=== PATIENT | male | born 1995 | race Hispanic/Latino ===

== ENCOUNTER 2017-08-15 22:28 | Emergency (ER) | payer BC ==
[~2017-08-15] VITALS: Ht 175.3 cm; Wt 110.8 kg
[2017-08-15 22:49] LABS: HEMATOCRIT 41.4 % (38.0-50.0); HEMOGLOBIN 14.2 G/DL (12.5-16.6); MCH 26.4 PG (29.0-34.0); MCHC 34.3 G/DL (30.0-36.0); MCV 77.1 FL (86-99); PLATELET COUNT 387 K/uL (156-360); RBC DIS.WIDTH-CV 14.7 % (11.8-14.6); RBC DIS.WIDTH-SD 40.1 % (39-53); RED BLOOD COUNT 5.37 M/uL (4.00-5.50); WHITE BLOOD COUNT 9.8 K/uL (4.1-10.2)
[2017-08-15 23:02] LABS: ALBUMIN 4.6 g/dL (3.2-4.8); CHLORIDE 110 mEq/L (99-109); POTASSIUM 3.6 mEq/L (3.7-5.4); SODIUM 140 mEq/L (136-147)
[2017-08-15 23:04] LABS: GLUCOSE 90 mg/dL (70-99)
[2017-08-15 23:05] LABS: TOTAL PROTEIN 8.5 g/dL (6.4-8.3)
[2017-08-15 23:06] LABS: TOTAL BILIRUBIN 0.5 mg/dL (0.0-1.0)
[2017-08-15 23:08] LABS: ALKALINE PHOSPHATASE 102 IU/L (3-129); CREATININE 0.9 mg/dL (0.6-1.3); GFR ESTIMATE (CALCULATED) > 59 mL/min/ (58.99-99999)
[2017-08-15 23:09] LABS: UREA NITROGEN (BUN) 8 mg/dL (9-23)
[2017-08-15 23:10] LABS: AST (GOT) 98 IU/L (2-34)
[2017-08-15 23:11] LABS: ALT (GPT) 212 IU/L (3-49)
[2017-08-16 01:28] LABS: LIPASE 32 U/L (1.0-51.0)
[2017-08-16 03:09] VITALS: BP 128/74
== END 2017-08-16 03:10 | disposition home or self-care (01) ==
LOC: EME 22:28
DX: R11.0 Nausea (principal); R53.83 Other fatigue; R10.9 Unspecified abdominal pain; J45.909 Unspecified asthma, uncomplicated; F41.9 Anxiety disorder, unspecified
CPT/HCPCS: 74177; 80053; 83690; 85027; 99281; 99285; J2405; J7030

== ENCOUNTER 2017-10-16 16:32 | Emergency (ER) | payer BC ==
[~2017-10-16] VITALS: Ht 175.3 cm; Wt 110.9 kg
[2017-10-16 17:21] LABS: HEMATOCRIT 40.3 % (38.0-50.0); HEMOGLOBIN 13.4 G/DL (12.5-16.6); MCH 25.6 PG (29.0-34.0); MCHC 33.3 G/DL (30.0-36.0); MCV 77.1 FL (86-99); PLATELET COUNT 388 K/uL (156-360); RBC DIS.WIDTH-CV 14.4 % (11.8-14.6); RBC DIS.WIDTH-SD 39.6 % (39-53); RED BLOOD COUNT 5.23 M/uL (4.00-5.50); WHITE BLOOD COUNT 8.6 K/uL (4.1-10.2)
[2017-10-16 17:25] LABS: APPEARANCE CLEAR ((CLEAR)); BILIRUBIN NEGATIVE; BLOOD NEGATIVE; COLOR YELLOW ((YELLOW)); GLUCOSE (STRIP) NEGATIVE; KETONES NEGATIVE; LEUKOCYTES NEGATIVE; NITRITE NEGATIVE; PROTEIN (STRIP) 30; SPECIFIC GRAVITY 1.013 (1.000-1.030); UCUL ADDED? NO; UROBILINOGEN 0.2 MG/DL (0.2-1.0)
[2017-10-16 17:57] LABS: ALBUMIN 4.5 G/DL (3.2-4.8); ALKALINE PHOSPHATASE 76 IU/L (3-129); ALT (GPT) 132 IU/L (3-49); AST (GOT) 61 IU/L (2-34); CHLORIDE 104 MEQ/L (99-109); CREATININE 0.8 MG/DL (0.6-1.3); GFR ESTIMATE (CALCULATED) > 59 mL/min/ (58.99-99999); GLUCOSE 92 mg/dL (70-99); POTASSIUM 3.6 MEQ/L (3.7-5.4); SODIUM 137 MEQ/L (136-147); TOTAL BILIRUBIN 0.5 MG/DL (0.0-1.0); TOTAL PROTEIN 7.9 G/DL (6.4-8.3); UREA NITROGEN (BUN) 9 mg/dL (9-23)
[2017-10-16 20:08] LABS: LIPASE 36 U/L (1.0-51.0)
[2017-10-16] MEDS ORDERED: REGLAN10 MG PO (20:19)
[2017-10-16] MEDS ORDERED: LEVSIN0.125 MG PO (20:19)
[2017-10-16 20:27] VITALS: BP 141/90
== END 2017-10-16 20:28 | disposition home or self-care (01) ==
LOC: EME 16:32
DX: R10.12 Left upper quadrant pain (principal); R11.0 Nausea; K76.0 Fatty (change of) liver, not elsewhere classified; K58.0 Irritable bowel syndrome with diarrhea; J45.909 Unspecified asthma, uncomplicated; F41.9 Anxiety disorder, unspecified
CPT/HCPCS: 74177; 80053; 81003; 83690; 85027; 99281; 99284; J1885; J2405; J7120

== ENCOUNTER 2017-11-07 00:39 | Emergency (ER) | payer BC ==
[~2017-11-07] VITALS: Ht 175.3 cm; Wt 109.0 kg
[~2017-11-07 00:39] MED LIST: LEVSIN0.125 MG PO; REGLAN10 MG PO
[2017-11-07 01:46] LABS: HEMATOCRIT 39.1 % (38.0-50.0); HEMOGLOBIN 13.2 G/DL (12.5-16.6); MCH 25.9 PG (29.0-34.0); MCHC 33.8 G/DL (30.0-36.0); MCV 76.8 FL (86-99); PLATELET COUNT 367 K/uL (156-360); RBC DIS.WIDTH-CV 14.8 % (11.8-14.6); RBC DIS.WIDTH-SD 40.8 % (39-53); RED BLOOD COUNT 5.09 M/uL (4.00-5.50); WHITE BLOOD COUNT 8.9 K/uL (4.1-10.2)
[2017-11-07 01:54] LABS: ALBUMIN 4.6 g/dL (3.2-4.8)
[2017-11-07 01:55] LABS: CHLORIDE 104 mEq/L (99-109); POTASSIUM 3.6 mEq/L (3.7-5.4); SODIUM 140 mEq/L (136-147)
[2017-11-07 01:57] LABS: GLUCOSE 92 mg/dL (70-99); TOTAL PROTEIN 8.5 g/dL (6.4-8.3)
[2017-11-07 01:59] LABS: TOTAL BILIRUBIN 0.6 mg/dL (0.0-1.0)
[2017-11-07 02:00] LABS: SERUM ETHYL ALCOHOL < 10 mg/dL
[2017-11-07 02:01] LABS: ALKALINE PHOSPHATASE 93 IU/L (3-129); GFR ESTIMATE (CALCULATED) > 59 mL/min/ (58.99-99999)
[2017-11-07 02:02] LABS: AST (GOT) 112 IU/L (2-34)
[2017-11-07 02:03] LABS: UREA NITROGEN (BUN) 15 mg/dL (9-23)
[2017-11-07 02:04] LABS: ALT (GPT) 209 IU/L (3-49); SALICYLATE < 5.0 MG/DL (15-30)
[2017-11-07 02:05] LABS: ACETAMINOPHEN (TYLENOL) < 10 mcg/mL (10-30)
[2017-11-07 06:56] LABS: APPEARANCE CLEAR ((CLEAR)); BILIRUBIN NEGATIVE; BLOOD NEGATIVE; COLOR YELLOW ((YELLOW)); GLUCOSE (STRIP) NEGATIVE; KETONES 5; LEUKOCYTES TRACE; NITRITE NEGATIVE; PROTEIN (STRIP) 100; SPECIFIC GRAVITY 1.031 (1.000-1.030); UROBILINOGEN 0.2 MG/DL (0.2-1.0)
[2017-11-07 07:00] LABS: BACTERIA NONE SEEN /HPF; EPITHELIAL CELLS RARE /HPF; MUCUS TRACE /LPF; RED BLOOD CELLS 0-5 /HPF (0-5); WHITE BLOOD CELLS 0-5 /HPF (0-5)
[2017-11-07 11:02] LABS: AMPHETAMINE NEGATIVE (500 ng/mL); BARBITURATES NEGATIVE (200 ng/mL); BENZODIAZEPINES NEGATIVE (150 ng/mL); BUPRENORPHINE NEGATIVE (10 ng/mL); COCAINE NEGATIVE (150 ng/mL); METHADONE NEGATIVE (200 ng/mL); METHAMPHETAMINE NEGATIVE (500 ng/mL); OPIATES (MORPHINE) NEGATIVE (100 ng/mL); OXYCODONE NEGATIVE (100 ng/mL); PHENCYCLIDINE NEGATIVE (25 ng/mL); PROPOXYPHENE NEGATIVE (300 ng/mL); THC CANNABINOIDS NEGATIVE (50 ng/mL); TRICYCLIC ANTIDEPRESSANTS NEGATIVE (300 ng/mL)
[2017-11-07] MEDS ORDERED: ATARAX,VISTARIL25 MG PO (14:04)
[2017-11-07 15:20] VITALS: BP 133/87
== END 2017-11-07 16:05 | disposition home or self-care (01) ==
LOC: EME → EDBD 00:39 → EME 00:39
PROVIDERS: Emergency Medicine
DX: F32.9 Major depressive disorder, single episode, unspecified (principal); T39.312A Poisoning by propionic acid derivatives, intentional self-harm, initial encounter; R45.851 Suicidal ideations; F41.1 Generalized anxiety disorder; F43.21 Adjustment disorder with depressed mood; J45.909 Unspecified asthma, uncomplicated; K58.9 Irritable bowel syndrome, unspecified; Z87.891 Personal history of nicotine dependence
CPT/HCPCS: 80053; 81003; 85027; 90837; 99281; 99284; G0480